=== PATIENT | male | born 1945 | race Caucasian/White ===

== ENCOUNTER 2017-08-12 05:37 | Inpatient (IN) ==
[2017-08-08 13:39] LABS: Basophils % 0.5 % (0.0-0.8); Eosinophils # 0.1 10*3/uL (0.0-0.87); Eosinophils % 1.3 % (0.00-10.9); Hematocrit 41.7 VOL% (42.0-52.0); Hemoglobin 14.2 GM/DL (14.0-18.0); Immature Granulocytes % 0.8 %; Immature Granulocytes Absolute 0.06 #; Lymphocytes # 2.2 10*3/uL (1.4-4.0); Lymphocytes % 28.1 % (21.2-54.2); Mean Corpuscular HGB Conc 34.1 GM/DL (32-36); Mean Corpuscular Hemoglobin 32 PG (27-34); Mean Corpuscular Volume 93.5 FL (87-102); Monocytes # 0.4 10*3/uL (0.11-0.8); Monocytes % 5.7 % (1.7-12.7); Neutrophils # 4.9 10*3/uL (1.4-7.4); Neutrophils % 63.6 % (38.7-73.9); Platelet Count 214 T/CUMM (130-400); Red Blood Count 4.46 MC/CUMM (3.8-5.5); Red Cell Distribution Width 12.6 % (9.3-17.3); White Blood Count 7.7 T/CUMM (4-12)
--- NOTE | 2017-08-08 13:40 | EKG Report ---
Stationary ECG Study [facility] Test Date: 08/08/2017 1:36:49 PM Pat Name: DANA CATHERINE Department: Room: Gender: M White Lead Grinder: Deb bryant : 1945 Requested by: Yair Faith Order Number: [id number] Reading MD: MARY MORGAN Intervals [place] Rate: 77 P: 999 [place]: 0 QRS: 72 QRSD: 152 T: 73 QT: 397 QTc: 428 Interpretive Statements ATRIAL FIBRILLATION RIGHT BUNDLE BRANCH BLOCK MARKED ST DEPRESSION, POSSIBLE SUBENDOCARDIAL INJURY OR DIGITALIS EFFECT Electronically Signed On 08-08-17 16:51:28 CDT by MARY MORGAN [email or web address]
[2017-08-08 13:48] LABS: INR 1.1; PT Patient Result 11.7 SECS; Partial Thromboplastin Time 27.1 SECS (0-40)
[2017-08-08 14:30] LABS: Albumin 3.5 G/DL (3.4-5.0); Bilirubin,Total 0.5 MG/DL (0.2-1.0); Calcium 9.7 MG/DL (8.5-10.1); Osmolality,Calculated 278.5 MOS/KG (273-304); Potassium 4.3 MMOL/L (3.5-5.1); Total Protein 7.1 G/DL (6.4-8.3)
[2017-08-08 14:54] LABS: Apearance,Urine CLEAR (Clear); Bilirubin,Urine Negative (Negative); Blood, Urine Negative (Negative); Glucose,Urine (UA) Negative (Negative); Ketones,Urine Negative (Negative); Nitrite,Urine Negative (Negative); Protein,Urine Negative; RBC,Urine 1 /HPF (0-4); Urine Color Straw (Yellow); Urine Specific Gravity 1.005 (1.001-1.035); Urine Urobilinogen < 2.0 EU/DL (0.2-1.0); WBC,Urine <1 /HPF (0-6)
--- NOTE | 2017-08-08 15:00 | XRay Report ---
XR chest 2V Indication: Respiratory preoperative evaluation. Comparison: 24 December 2016 Findings: The heart and mediastinum are stable in size and configuration with cardiac surgery changes. The pulmonary vascularity is normal in caliber. Lung volumes are increased with prominent bronchial markings. No lung infiltrates, effusions, pneumothorax or other abnormality is demonstrated. Impression: Chronic lung and cardiac surgery changes. No acute process or significant change. PROCEDURE INTERPRETED AT [facility] DEPARTMENT OF RADIOLOGY Final Report Signed by: Dr. Isreal Gorman
[2017-08-12] MEDS ORDERED: VANCOMYCIN INJ 1,000 MG in SODIUM CHLORIDE 0.9% 250 ML IV ONE (06:00)
--- NOTE | 2017-08-12 07:08 | History and Physical Update ---
History and Physical Update - History and Physical H&P was reviewed, the patient examined and there: are no changes in the patients condition since last H&P was completed.
[2017-08-12] MEDS ORDERED: SODIUM CHLORIDE 0.9% 100 ML IV ONE (08:42)
[2017-08-12] MEDS ORDERED: ceFAZolin 1,000 MG VIAL ONE (08:42)
[2017-08-12] MEDS ORDERED: TRANEXAMIC ACID 1,000 MG/10 ML VIAL IV ONE (09:46)
[2017-08-12] MEDS ORDERED: VANCOMYCIN 1,000 MG VIAL ONE (09:54)
[2017-08-12] MEDS ORDERED: diphenhydrAMINE CAP 25 MG CAPSULE PO PRN (10:15)
[2017-08-12] MEDS ORDERED: BISACODYL 10 MG SUPP RECTAL PRN (10:15)
[2017-08-12] MEDS ORDERED: ONDANSETRON 4 MG/2 ML VIAL IV PRN (10:15)
[2017-08-12] MEDS ORDERED: HYDROmorphone 2 MG/1 ML VIAL IV PRN (10:15)
[2017-08-12] MEDS ORDERED: LACTULOSE 20 GM/30 ML UDCUP PO PRN (10:15)
[2017-08-12] MEDS ORDERED: TEMAZEPAM 7.5 MG CAPSULE PO PRN (10:15)
[2017-08-12] MEDS ORDERED: NALOXONE 0.4 MG/ML VIAL IV PRN (10:15)
[2017-08-12] MEDS ORDERED: ROPIVACAINE 0.5% 30 ML VIAL ONE (12:00)
[2017-08-12] MEDS ORDERED: fentaNYL 100 MCG/2 ML VIAL ONE (12:33)
[2017-08-12] MEDS ORDERED: SEVOFLURANE 1 UNIT/15 MINUTE INH ONE (12:33)
[2017-08-12] MEDS ORDERED: HYDROmorphone 2 MG/1 ML VIAL ONE (12:33)
[2017-08-12] MEDS ORDERED: PROPOFOL 200 MG/20 ML VIAL IV ONE (12:33)
[2017-08-12] MEDS ORDERED: GLYCOPYRROLATE 0.4 MG/2 ML VIAL ONE (12:34)
[2017-08-12] MEDS ORDERED: DEXAMETHASONE 10 MG/1 ML VIAL ONE (12:34)
[2017-08-12] MEDS ORDERED: NEOSTIGMINE 10 MG/10 ML VIAL ONE (12:34)
[2017-08-12] MEDS ORDERED: ONDANSETRON 4 MG/2 ML VIAL ONE (12:34)
[2017-08-12] MEDS ORDERED: LACTATED RINGERS 1,000 ML IV ONE (12:34)
[2017-08-12] MEDS ORDERED: ROCURONIUM 100 MG/10 ML VIAL IV ONE (12:34)
[2017-08-12] MEDS ORDERED: ACETAMINOPHEN 1,000 MG/100 ML VIAL IV ONE (12:34)
[2017-08-12] MEDS ORDERED: KETOROLAC 30 MG/1 ML VIAL ONE (12:34)
[2017-08-12] MEDS ORDERED: MIDAZOLAM 2 MG/2 ML VIAL ONE (12:34)
--- NOTE | 2017-08-12 12:57 | XRay Report ---
XR knee 2V RT Indication: Joint replacement (right knee) Comparison: Right knee x-ray July 21, 2017 Technique: Frontal and lateral views of the right knee. Findings: Status post total right knee arthroplasty. No evidence of immediate hardware failure. Superficial skin jin and surgical drain/s overlie the knee. Subcutaneous and joint space air noted which is likely postoperative. IMPRESSION: Status post total right knee arthroplasty. PROCEDURE INTERPRETED AT [facility] DEPARTMENT OF RADIOLOGY Final Report Signed by: Dr Willy Yip
[2017-08-12] MEDS: LACTATED RINGERS 1,000 ML IV SCH (13:32)
[2017-08-12] MEDS: HYDROmorphone PCA 30 MG/30 ML SYRINGE IV SCH (13:32)
--- NOTE | 2017-08-12 14:05 | Orthopedic Progress Note ---
Orthopedics - Subjective Interval history: Comfortable neurovascular intact discussed up in a Exam - Constitutional Vitals: Period Temp Pulse Resp BP Sys/Paulson Pulse Ox Last 24 Hr 97.5 F-98.2 F 75-103 12-20 101-153/61-105 90-99 Results - Labs CBC & BMP: 08/08/17 13:30 08/08/17 13:30
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
[2017-08-12] MEDS: ceFAZolin 2,000 MG in PREMIX 1 EACH IV SCH (18:01)
[2017-08-12] MEDS: OMEGA 3 ACID ETHYL ESTERS 1 GM CAPSULE PO SCH (21:26)
[2017-08-12] MEDS: ASCORBIC ACID 500 MG TABLET PO SCH (21:27)
[2017-08-12] MEDS: DOCUSATE SODIUM 100 MG CAPSULE PO SCH (21:27)
[2017-08-12] MEDS: MAGNESIUM CHLORIDE 64 MG TABLET PO SCH (21:28)
[2017-08-12] MEDS: CARVEDILOL 25 MG TABLET PO SCH (21:28)
[2017-08-12] MEDS: APIXABAN 5 MG TABLET PO SCH (21:28)
--- NOTE | 2017-08-13 01:17 | Operative Note ---
DATE: 08/12/2017 PREOPERATIVE DIAGNOSIS: OSTEOARTHRITIS, RIGHT KNEE. POSTOPERATIVE DIAGNOSIS: OSTEOARTHRITIS, RIGHT KNEE. OPERATIVE PROCEDURE: RIGHT TOTAL KNEE (ATT[place]). SURGEON: Ananth Kay Jr., MD ANESTHESIA: General. INDICATIONS: A 72-year-old white male with severe osteoarthritis to his right knee to maximize conse rvative treatment through the years including oral agents as well as more recently injections. He is having severe actively limiting pain for which he presents today for elective total knee. OPERATIVE PROCEDURE: The patient was taken to operating room under general anesthetic, positioned in the supine position. The right leg positioned, prepped and draped in the usual sterile manner. He received Ancef and vancomycin preoperatively. The limb was elevated, exsanguinated, and the tourniqu et inflated to 300 mmHg. A midline incision was made over the anterior aspect of the right knee. Sh arias dissection was carried down through skin and subcutaneous tissue. A median parapatellar arthroto my was performed. The knee revealing extensive tricompartmental degenerative changes. Intramedullar y alignment guides were used to make the appropriate cuts about the distal femur and proximal tibia. Both were sized to a 6. The PCL retained. A 7 mm spacer was selected. The patella was resurfaced with a 38 button. After removal of the trial components and irrigation, all three components were ce mented into place. After the cement harden, the wound was closed over two 1/8th-inch Hemovac drains in standard fashion using #1 Vicryl for the arthrotomy, 2-0 Vicryl for the subcutaneous layer, and st aples for skin. Sterile dressing applied, he was taken to recovery room in stable condition. Tourni quet was deflated during the wound closure at 43 minutes.
[2017-08-13] MEDS: ceFAZolin 2,000 MG in PREMIX 1 EACH IV SCH (01:35)
[2017-08-13 07:19] LABS: Basophils % 0.2 % (0.0-0.8); Hematocrit 36.4 VOL% (42.0-52.0); Hemoglobin 12.5 GM/DL (14.0-18.0); Immature Granulocytes % 0.6 %; Immature Granulocytes Absolute 0.07 #; Lymphocytes # 1.5 10*3/uL (1.4-4.0); Lymphocytes % 13.1 % (21.2-54.2); Mean Corpuscular HGB Conc 34.3 GM/DL (32-36); Mean Corpuscular Hemoglobin 32 PG (27-34); Mean Corpuscular Volume 92.2 FL (87-102); Mean Platelet Volume 9.2 FL (9.6-12.0); Monocytes # 1.4 10*3/uL (0.11-0.8); Monocytes % 12.1 % (1.7-12.7); Neutrophils # 8.7 10*3/uL (1.4-7.4); Platelet Count 216 T/CUMM (130-400); Red Blood Count 3.95 MC/CUMM (3.8-5.5); Red Cell Distribution Width 12.6 % (9.3-17.3); White Blood Count 11.7 T/CUMM (4-12)
[2017-08-13 07:37] LABS: Calcium 8.6 MG/DL (8.5-10.1); Osmolality,Calculated 270.1 MOS/KG (273-304); Potassium 4.3 MMOL/L (3.5-5.1)
--- NOTE | 2017-08-13 08:09 | Orthopedic Progress Note ---
Orthopedics - Subjective Interval history: Comfortable drain removed H&H stable discussed restart PT Exam - Constitutional Vitals: Period Temp Pulse Resp BP Sys/Paulson Pulse Ox Last 24 Hr 97.5 F-99.4 F 75-133 12-20 101-163/54-105 90-99 Results - Labs CBC & BMP: 08/13/17 06:51 08/13/17 06:50
[2017-08-13] MEDS: DOCUSATE SODIUM 100 MG CAPSULE PO SCH ×2 (09:15→21:42)
[2017-08-13] MEDS: OMEGA 3 ACID ETHYL ESTERS 1 GM CAPSULE PO SCH ×2 (09:15→21:42)
[2017-08-13] MEDS: MAGNESIUM CHLORIDE 64 MG TABLET PO SCH ×2 (09:15→21:42)
[2017-08-13] MEDS: SPIRONOLACTONE 25 MG TABLET PO SCH (09:16)
[2017-08-13] MEDS: LOSARTAN 50 MG TABLET PO SCH (09:16)
[2017-08-13] MEDS: CARVEDILOL 25 MG TABLET PO SCH ×2 (09:16→21:41)
[2017-08-13] MEDS: APIXABAN 5 MG TABLET PO SCH ×2 (09:16→21:41)
[2017-08-13] MEDS: ASCORBIC ACID 500 MG TABLET PO SCH ×2 (09:16→21:42)
[2017-08-13] MEDS: DIGOXIN 0.25 MG TABLET PO SCH (09:16)
[2017-08-13] MEDS: FUROSEMIDE 40 MG TABLET PO SCH (09:34)
--- NOTE | 2017-08-13 13:50 | Cardiology Progress Note ---
Tarun Lam April RN, am scribing for, and in the presence of, Jessica Dangelo DO 13 :50. Assessment and Plan - Time spent with patient Time spent with patient: Less than 30 minutes (1) History of coronary artery bypass graft Status: Chronic Assessment and plan: no s/s of angina or decompensated HF. Current Visit: No (2) History of mitral valve replacement with bioprosthetic valve Status: Chronic Current Visit: No (3) Hypertension Status: Chronic Current Visit: No Qualifiers: Hypertension type: essential hypertension Qualified Code(s): I10 - Essential (primary) hypertension (4) Hyperlipidemia Status: Chronic Current Visit: No Qualifiers: Hyperlipidemia type: pure hypercholesterolemia Qualified Code(s): E78.00 - Pure hypercholesterolemia, unspecified; E78.0 - Pure hypercholesterolemia (5) Coronary artery disease Status: Chronic Current Visit: No Qualifiers: Coronary Disease-Associated Artery/Lesion type: [place] artery [place] vs. transplanted heart: [place] heart Associated angina: without angina Qualified Code(s): I25.10 - Atherosclerotic heart disease of [place] coronary artery without angina pectoris (6) Atrial fibrillation Status: Acute Current Visit: Yes Cardiology - PN: Subj Interval history: Patient Carrier: Dr. Restrepo Summary: Mr. Che is a 72-year-old male with a history of atrial fibrillation status post ablation in the remote past and now has permanent atrial fibrillation. He also has coronary artery disease and received 2 vessel coronary bypass grafting at the time of his mitral valve replacement in [place] several years ago. Echocardiogram done at [facility] November 09, 2016 showed concentric left ventricular hypertrophy that was moderate with ejection fraction 55% and a moderately increased left atrium. He has mild to moderate tricuspid regurgitation and aortic valvular calcification. At that time he was noted to have a normal functioning tissue bioprosthesis in the mitral position. He is now postop day #1 post right total knee replacement. He is doing well no chest pain no palpitations his rate is controlled rate is about 90 when I listen him he has been started back on his anticoagulation. Exam (Progress Note) - Constitutional Vitals: Period Temp Pulse Resp BP Sys/Paulson Pulse Ox Last 24 Hr 97.5 F-99.4 F 86-133 12-20 130-163/54-105 90-99 General appearance: normal weight - Head Head exam: Present: normal inspection - Eye Eye exam: Present: EOMI Pupils: Present: [place] - Respiratory Respiratory exam: Present: clear to auscultation bilaterally - Cardiovascular Cardiovascular exam: Present: irregular rhythm (rate is about 90. Murmur of bioprosthesis) - Extremities Exam Extremities exam: Present: normal inspection, other (right knee dressed) - Neurological Exam Neurological exam: Present: alert, oriented X3 - Psychiatric Psychiatric exam: Present: normal affect, normal mood - Skin Skin exam: Present: normal color, warm Result/EKG - Labs CBC & BMP: 08/13/17 06:51 08/13/17 06:50 Labs: Laboratory Results - last 24 hr 08/13/17 08/13/17 06:50 06:51 WBC 11.7 RBC 3.95 Hgb 12.5 L Hct 36.4 L MCV 92.2 MCH 32 MCHC 34.3 RDW 12.6 Plt Count 216 MPV 9.2 L Neut % (Auto) 74.0 H Lymph % (Auto) 13.1 L [place] % (Auto) 12.1 Eos % (Auto) 0.0 Baso % (Auto) 0.2 Neut # (Auto) 8.7 H Lymph # (Auto) 1.5 [place] # (Auto) 1.4 H Eos # (Auto) 0.0 Baso # (Auto) 0.0 Immature Gran % 0.6 Nucleated RBC % 0.0 Immature Gran # 0.07 Nucleated RBCs # 0.00 Immature Plt Fraction 0.0 Sodium 135 L Potassium 4.3 Chloride 98 Carbon Dioxide 30 Anion Gap 11.3 BUN 11 Creatinine 0.80 GFR Calculation 111 BUN/Creatinine Ratio 13.00 Glucose 135 H Calculated Osmolality 270.1 L Calcium 8.6 Specialty Discharge - Follow Up or Referrals Follow up with: Ananth Kay Jr., MD [Physician] - Loreto Lam Shea, DO, personally performed the services described in this documentation, ascribed by Tracie Mcneil RN in my presence, and it is both accurate and complete 350 .
--- NOTE | 2017-08-13 18:10 | Anesthesia Post-Op ---
Anesthesia Post OP - Post Ansesthetic Evaluation Patient seen in post op: Yes Resp: within normal limits CV: within normal limits Mental: within normal limits Temp: within normal limits [id number]-[id number]: within normal limits Nausea and Vomiting: within normal limits Pain: within normal limits
[2017-08-13] MEDS: MAGNESIUM HYDROXIDE SUSP 30 ML UDCUP PO PRN (21:40)
[2017-08-14 04:00] LABS: Basophils % 0.3 % (0.0-0.8); Eosinophils % 0.3 % (0.00-10.9); Hematocrit 34.8 VOL% (42.0-52.0); Immature Granulocytes % 0.7 %; Lymphocytes # 1.7 10*3/uL (1.4-4.0); Lymphocytes % 12.7 % (21.2-54.2); Mean Corpuscular HGB Conc 34.5 GM/DL (32-36); Mean Corpuscular Hemoglobin 32 PG (27-34); Mean Platelet Volume 9.7 FL (9.6-12.0); Monocytes # 1.7 10*3/uL (0.11-0.8); Monocytes % 12.2 % (1.7-12.7); Neutrophils # 9.9 10*3/uL (1.4-7.4); Neutrophils % 73.8 % (38.7-73.9); Platelet Count 212 T/CUMM (130-400); Red Blood Count 3.74 MC/CUMM (3.8-5.5); Red Cell Distribution Width 12.7 % (9.3-17.3); White Blood Count 13.5 T/CUMM (4-12)
[2017-08-14] MEDS: LACTATED RINGERS 1,000 ML IV SCH ×2 (05:45→07:12)
[2017-08-14] MEDS: MAGNESIUM HYDROXIDE SUSP 30 ML UDCUP PO PRN ×2 (08:26→21:13)
[2017-08-14] MEDS: ASCORBIC ACID 500 MG TABLET PO SCH ×2 (08:27→21:14)
[2017-08-14] MEDS: DOCUSATE SODIUM 100 MG CAPSULE PO SCH ×2 (08:27→21:14)
[2017-08-14] MEDS: OMEGA 3 ACID ETHYL ESTERS 1 GM CAPSULE PO SCH ×2 (08:27→21:15)
[2017-08-14] MEDS: SPIRONOLACTONE 25 MG TABLET PO SCH (08:27)
[2017-08-14] MEDS: APIXABAN 5 MG TABLET PO SCH ×2 (08:27→21:16)
[2017-08-14] MEDS: DIGOXIN 0.25 MG TABLET PO SCH (08:27)
[2017-08-14] MEDS: CARVEDILOL 25 MG TABLET PO SCH ×2 (08:27→21:16)
[2017-08-14] MEDS: LOSARTAN 50 MG TABLET PO SCH (08:27)
[2017-08-14] MEDS: MAGNESIUM CHLORIDE 64 MG TABLET PO SCH ×2 (08:28→21:14)
--- NOTE | 2017-08-14 10:29 | Orthopedic Progress Note ---
Orthopedics - Subjective Interval history: Comfortable dressing dry H&H stable continue PT home with home health tomorrow or Saturday Exam - Constitutional Vitals: Period Temp Pulse Resp BP Sys/Paulson Pulse Ox Last 24 Hr 97.7 F-100.2 F 81-126 18-20 115-154/65-81 92-99 Results - Labs CBC & BMP: 08/14/17 02:57 08/13/17 06:50 Specialty Discharge - Follow Up or Referrals Follow up with: Ananth Kay Jr., MD [Physician] -
[2017-08-14] MEDS: FUROSEMIDE 40 MG TABLET PO SCH (10:52)
--- NOTE | 2017-08-14 11:16 | Pathology Report from [facility] ---
[facility] [place] ACCESSION # : [id number] PATIENT NAME : Jr. Catherine Fred W. ORDERING DR : PROSPER FANG JR, MD CLINICAL HX: Right knee osteoarthritis POST-OP DX: Same SPECIMEN INFO: Right knee bone and tissue GROSS DESCRIPTION: The specimen is received in formalin labeled with the patients name and consists of multiple fragments of bone, cartilage and adipose tissue measuring collectively 14.5 x 15.8 cm. The articular surfaces are focally degenerative with cartilage lipping areas present and an area of fibrinous eburnation present measuring 1.0 cm. Template Reproduction Technician tissue submitted in one cassette following decalcification. DIAGNOSIS FOR DANA CATHERINE JR.: RIGHT KNEE, TOTAL REPLACEMENT: Fragments of cartilage and bone with reactive/degenerative changes consistent with osteoarthritis. COLLECTED DATE: 08/12/2017 [facility] [place] DATE: 08/14/2017 ELECTRONICALLY SIGNED BY: Abbey Tyler M.D. 08/14/2017 - 9:31:03 GERTRUDIS
--- NOTE | 2017-08-14 20:47 | Cardiology Progress Note ---
Tarun Lam April RN, am scribing for, and in the presence of, Jessica Dangelo, 20 :47. Assessment and Plan (1) Atrial fibrillation Status: Chronic Current Visit: Yes (2) Coronary artery disease Status: Chronic Current Visit: Yes Qualifiers: Coronary Disease-Associated Artery/Lesion type: [place] artery [place] vs. transplanted heart: [place] heart Associated angina: without angina Qualified Code(s): I25.10 - Atherosclerotic heart disease of [place] coronary artery without angina pectoris (3) History of coronary artery bypass graft Status: Chronic Current Visit: No (4) History of mitral valve replacement with bioprosthetic valve Status: Chronic Current Visit: No (5) Hyperlipidemia Status: Chronic Current Visit: Yes Qualifiers: Hyperlipidemia type: pure hypercholesterolemia Qualified Code(s): E78.00 - Pure hypercholesterolemia, unspecified; E78.0 - Pure hypercholesterolemia (6) Hypertension Status: Chronic Current Visit: Yes Qualifiers: Hypertension type: essential hypertension Qualified Code(s): I10 - Essential (primary) hypertension Cardiology - PN: Subj Interval history: Submarine Advisory Team Watch Officer: Dr. Restrepo Summary: Mr. Che is a 72-year-old male with a history of atrial fibrillation status post ablation in the remote past and now has permanent atrial fibrillation. He also has coronary artery disease and received 2 vessel coronary bypass grafting at the time of his mitral valve replacement in [place] several years ago. Echocardiogram done at [facility] November 09, 2016 showed concentric left ventricular hypertrophy that was moderate with ejection fraction 55% and a moderately increased left atrium. He has mild to moderate tricuspid regurgitation and aortic valvular calcification. At that time he was noted to have a normal functioning tissue bioprosthesis in the mitral position. He underwent right total knee replacement on August 12, [address] Kay. His Eliquis has been restarted. August 14, 2017: Mr. Che is day 2 status post right total knee. He denies any chest pain or palpitations and only reports slight shortness of breath when he exerts himself. Physical therapy has been working with him and he does report some knee discomfort. Labs this morning are stable. Heart rate has been controlled. He states that he feels much better today and he is anticipating discharge tomorrow. I have nothing to add at this time and will sign off. Please call if needed. Follow up with Dr. Allen as previously scheduled. Exam (Progress Note) - Constitutional Vitals: Period Temp Pulse Resp BP Sys/Paulson Pulse Ox Last 24 Hr 97.7 F-100.2 F 81-126 18-20 115-154/65-81 92-99 General appearance: normal weight, no acute distress - Head Head exam: Absent: abrasion, hematoma - Eye Eye exam: Present: EOMI Pupils: Present: [place] - Respiratory Respiratory exam: Present: clear to auscultation bilaterally. Absent: accessory muscle use, chest wall tenderness - Cardiovascular Cardiovascular exam: Present: irregular rhythm, other (Murmur of bioprosthesis) - GI/Abdominal GI/Abdominal exam: Present: normal bowel sounds, soft. Absent: distended, tenderness - Extremities Exam Extremities exam: Present: other (Dressing noted to right knee). Absent: edema - Neurological Exam Neurological exam: Present: alert, oriented X3 - Psychiatric Psychiatric exam: Present: normal affect, normal mood - Skin Skin exam: Present: normal color, warm, dry Result/EKG - Labs CBC & BMP: 08/14/17 02:57 08/13/17 06:50 Labs: Laboratory Results - last 24 hr 08/14/17 02:57 WBC 13.5 H RBC 3.74 L Hgb 12.0 L Hct 34.8 L MCV 93.0 MCH 32 MCHC 34.5 RDW 12.7 Plt Count 212 MPV 9.7 Neut % (Auto) 73.8 Lymph % (Auto) 12.7 L [place] % (Auto) 12.2 Eos % (Auto) 0.3 Baso % (Auto) 0.3 Neut # (Auto) 9.9 H Lymph # (Auto) 1.7 [place] # (Auto) 1.7 H Eos # (Auto) 0.0 Baso # (Auto) 0.0 Immature Gran % 0.7 Nucleated RBC % 0.0 Immature Gran # 0.10 Nucleated RBCs # 0.00 Immature Plt Fraction 0.0 Specialty Discharge - Follow Up or Referrals Follow up with: Ananth Kay Jr., MD [Physician] - Loreto Lam Shea, DO, personally performed the services described in this documentation, ascribed by Tracie Mcneil RN in my presence, and it is both accurate and complete .
[2017-08-14] MEDS: CHOLECALCIFEROL 10000 UNIT PO SCH (21:12)
[2017-08-14] MEDS: HYDROmorphone PCA 30 MG/30 ML SYRINGE IV SCH (21:46)
--- NOTE | 2017-08-15 08:30 | Orthopedic Progress Note ---
Orthopedics - Subjective Interval history: Doing well no complaints continue with PT home today with home Exam - Constitutional Vitals: Period Temp Pulse Resp BP Sys/Paulson Pulse Ox Last 24 Hr 97.9 F-98.4 F 75-100 16-20 90-118/52-68 92-96 Results - Labs CBC & BMP: 08/14/17 02:57 08/13/17 06:50 Specialty Discharge - Follow Up or Referrals Follow up with: Ananth Kay Jr., MD [Physician] -
--- NOTE | 2017-08-15 08:32 | Discharge Summary ---
Hospital Course - Hospital Course Hospital Course: Admitted for elective total knee discharged home with home health Diagnosis - Discharge Diagnosis (1) Osteoarthritis of right knee Status: Acute Specialty Discharge - Follow Up or Referrals Follow up with: Ananth Kay Jr., MD [Physician] - Discharge Plan - Discharge Data Disposition: Home Health Service Condition at Discharge: Stable Discharge Diet: advance to your usual diet Activity: ambulate only with your walker, as per physical therapy, increase activity as tolerated Hygiene: may shower, keep area(s) dry Weight Bearing at Discharge: weight bear as tolerated Driving: not until seen by doctor - Discharge Medications New HYDROcodone/ACETAMIN 7.5-325 [[place] 7.5-325] 2 tablet PO Q4H PRN #30 tablet PRN Reason: Moderate Pain unrelieved by 1 Continue Rydal-3 Fatty Acids [Fish Oil] 300 mg PO BID Magnesium Chloride [Mag Delay] 64 mg PO BID Losartan Potassium 100 mg PO DAILY Cholecalciferol (Vitamin D3) [Vitamin D3] 10,000 unit PO BID Carvedilol [Coreg] 25 mg PO BID Ascorbic Acid Tab [Vitamin C Tab] 1,000 mg PO BID Apixaban [Eliquis] 5 mg PO BID Spironolactone [Aldactone] 25 mg PO DAILY NIFEdipine XL TAB [Procardia Xl] 30 mg PO BEDTIME Digoxin 250 mcg PO DAILY Furosemide Tab [Lasix Tab] 40 mg PO DAILY PRN PRN Reason: Edema - Follow Up or Referral Follow Up: Ananth Kay Jr., MD [Physician] - - Forms/Instructions Instructions: Total Knee Replacement (DC) Additional Discharge Instructions: Discharged home with home health continue home medications including his Eliquis [place] for pain #30 no refills weightbearing as tolerated per total knee protocol with walker CPM unit. Stevie will be removed and wound Steri-Stripped August 26. Follow-up with me 4 weeks Exam - Constitutional Vitals: Period Temp Pulse Resp BP Sys/Paulson Pulse Ox Last 24 Hr 97.9 F-98.4 F 75-100 16-20 90-118/52-68 92-96 DS: Provider Date of admission: 08/12/17 05:37 Primary care physician: Zee Crooks, Attending physician on admission: Ananth Kay Jr., MD Consults: 08/12/17 10:15 Consult to Case Mgmt/Social Srvs [CONS] Routine Reason for Case Mgmt/Social Srvs: Rehab Home Health Equipment Consult Comment: Deliver CPM machine to room 319 before D/C f/home rehab. Consult to Occupational Therapy [CONS] Routine Reason for Occupational Therapy: Evaluate and Treat Consult Comment: ADL's Consult to Physical Therapy [CONS] Routine Reason for Physical Therapy: Evaluate and Treat Gait Training 08/12/17 10:18 Consult to Physician [CONS] Routine Comment: Consulting Provider: Rosales Restrepo Consulting Provider Notified: Yes When should Consulting Provider be notified: Now Person Notified: [email or web address] Date Notified: 08/12/17 Time Notified: 13:16 Discharging clinician: Ananth Kay Jr., MD
[2017-08-15] MEDS: SPIRONOLACTONE 25 MG TABLET PO SCH (09:07)
[2017-08-15] MEDS: DOCUSATE SODIUM 100 MG CAPSULE PO SCH (09:07)
[2017-08-15] MEDS: CARVEDILOL 25 MG TABLET PO SCH (09:08)
[2017-08-15] MEDS: LOSARTAN 50 MG TABLET PO SCH (09:08)
[2017-08-15] MEDS: DIGOXIN 0.25 MG TABLET PO SCH (09:08)
[2017-08-15] MEDS: MAGNESIUM CHLORIDE 64 MG TABLET PO SCH (09:08)
[2017-08-15] MEDS: OMEGA 3 ACID ETHYL ESTERS 1 GM CAPSULE PO SCH (09:08)
[2017-08-15] MEDS: FUROSEMIDE 40 MG TABLET PO SCH (09:08)
[2017-08-15] MEDS: APIXABAN 5 MG TABLET PO SCH (09:08)
[2017-08-15] MEDS: ASCORBIC ACID 500 MG TABLET PO SCH (09:08)
[2017-08-15 11:54] VITALS: BP 108/64
== END 2017-08-15 12:35 | disposition home health service (06) | DRG 470 ==
LOC: N.SDSINP 05:37 → N.3E 13:07
PROVIDERS: ADMIT Orthopaedic Surgery; ATTEND Orthopaedic Surgery